=== PATIENT | male | born 1975 | race Caucasian/White ===

== ENCOUNTER 2018-02-18 19:48 | Emergency (ER) | payer SELFPAY ==
[~2018-02-18 19:48] MED LIST: CYCL10TA29 GT; DIA5 GT; DOXY-179 PO; LOR75 PO
--- NOTE | 2018-02-18 19:54 | ER Report ---
History and Physical Time Seen By MD: 19:53 HPI/ROS CHIEF COMPLAINT: Vomiting blood HISTORY OF PRESENT ILLNESS: This is a 42-year-old male who presents to emergency department for vomiting blood. Patient states that around 3 or 3:30 this aftern oon he woke up and felt like he was going to throw up, made it to the bathroom and had a large emesis with blood noted in the vomit. He states it was bright red he has had about 4-5 additional episodes, and now dark in color. Patient does have epigastric discomfort. No diarrhea. No recent fevers or chills. No chest pain or shortness of breath. No history of hematemesis. Patient does drink approximately 8 beers a day, does not take NSAIDs. REVIEW OF SYSTEMS: Constitutional: No fever, no chills. Eyes: No discharge. ENT: No sore throat. Cardiovascular: No chest pain, no palpitations. Respiratory: No cough, no shortness of breath. Gastrointestinal: As above. Genitourinary: No hematuria. Musculoskeletal: No back pain. Skin: No rashes. Neurological: No headache. Allergies: Coded Allergies: No Known Drug Allergies (Unverified , 02/18/18) Home Meds No Active Prescriptions or Reported Meds Past Medical/Surgical History The patient has a past medical and surgical history of left shoulder surgery, consuming large quantities of alcohol. Reviewed Nurses Notes: Yes Hx Smoking: No Smoking Status: Never Smoker Hx Substance Use Disorder: No Hx Alcohol Use: No Constitutional Vital Sign - Last 24 Hours 02/18/18 02/18/18 02/18/18 02/18/18 19:54 19:57 20:00 20:03 Temp 99.0 Pulse 97 87 Resp 18 B/P (MAP) 120/72 (88) 120/72 103/65 (78) Pulse Ox 89 95 O2 Delivery Room Air 02/18/18 02/18/18 02/18/18 02/18/18 20:15 20:18 20:30 20:33 Pulse 103 102 B/P (MAP) 110/71 (84) 127/78 (94) Pulse Ox 93 95 02/18/18 02/18/18 02/18/18 02/18/18 20:45 21:00 21:05 21:15 Pulse 108 B/P (MAP) 131/78 (95) 128/84 (99) 108/86 (93) Pulse Ox 96 02/18/18 02/18/18 02/18/18 02/18/18 21:20 21:50 21:55 22:00 Pulse 106 114 109 B/P (MAP) 119/84 (96) Pulse Ox 96 95 96 02/18/18 02/18/18 02/18/18 02/18/18 22:10 22:15 22:25 22:55 Pulse 122 118 112 B/P (MAP) 79/56 (64) Pulse Ox 91 95 93 02/18/18 02/18/18 02/18/18 02/18/18 23:00 23:10 23:15 23:20 Pulse 106 98 106 B/P (MAP) 132/85 (101) Pulse Ox 95 95 93 02/18/18 02/18/18 23:25 23:35 Pulse 103 Pulse Ox 95 O2 Flow Rate 2.0 Intake and Output 02/18/18 02/18/18 02/19/18 15:00 23:00 07:00 Intake Total 1000 ml 350 ml Balance 1000 ml 350 ml Physical Exam General Appearance: The patient is alert, has no immediate need for airway protection and no signs of toxicity. Eyes: Pupils equal and round no pallor or injection. ENT, Mouth: Mucous membranes are moist. Respiratory: There are no retractions, lungs are clear to auscultation. Cardiovascular: Regular rate and rhythm, very faint systolic murmur, no clicks or rubs. Gastrointestinal: Abdomen is soft, very mild tenderness to the epigastrium, no masses, bowel sounds normal. Liver is palpable. Neurological: Alert and oriented 4. Moving all extremities. Following all commands. No focal neuro deficits. Skin: Warm and dry, no rashes. Musculoskeletal: Neck is supple non tender. Extremities are nontender, nonswollen and have full range of motion. DIFFERENTIAL DIAGNOSIS: After history and physical exam differential diagnosis was considered for abdominal pain including but not limited to appendicitis, cholecystitis, gastritis and urinary tract infection.upper GI bleeding including but not limited to ulcer disease, gastritis, Peace-Quezada tear, and esophageal varices. Medical Decision Making Data Points Result Diagram: 02/18/18200302/18/182003 Laboratory Hematology Test 02/18/18 20:00 02/18/18 20:04 Urine Color Yellow Urine Clarity Cloudy Urine pH 6.0 pH (4.8-9.5) Urine Specific [place] 1.013 Urine Protein 30 mg/dL (NEGATIVE) Urine Glucose (UA) Negative mg/dL (NEGATIVE) Urine Ketones Negative mg/dL (NEGATIVE) Urine Blood Negative (NEGATIVE) Urine Nitrite Negative (NEGATIVE) Urine Bilirubin Negative (NEGATIVE) Urine Urobilinogen 4.0 mg/dL (0.2-1.9) Urine Leukocyte Esterase Negative (NEGATIVE) Urine RBC None /HPF (0-2/HPF) Urine WBC 1 /HPF (0-5/HPF) Urine Squamous Epithelial Cells Many /LPF (</=FEW) Urine Bacteria Negative /HPF (NONE-FEW) Urine Mucus None /HPF (NONE-FEW) Red Blood Count 4.02 M/uL (4.00-5.60) Mean Corpuscular Volume 65.9 fL (80.0-96.0) Mean Corpuscular Hemoglobin 20.7 pg (26.0-33.0) Mean Corpuscular Hemoglobin Concent 31.4 g/dL (32.0-36.0) Red Cell Distribution Width 20.1 % (11.5-14.5) Mean Platelet Volume 8.6 fL (7.2-11.1) Neutrophils (%) (Auto) 61.1 % (39.4-72.5) Lymphocytes (%) (Auto) 24.4 % (17.6-49.6) Monocytes (%) (Auto) 11.1 % (4.1-12.4) Eosinophils (%) (Auto) 1.8 % (0.4-6.7) Basophils (%) (Auto) 1.6 % (0.3-1.4) Nucleated RBC Relative Count (auto) 0.0 /100WBC Neutrophils # (Auto) 5.8 K/uL (2.0-7.4) Lymphocytes # (Auto) 2.3 K/uL (1.3-3.6) Monocytes # (Auto) 1.1 K/uL (0.3-1.0) Eosinophils # (Auto) 0.2 K/uL (0.0-0.5) Basophils # (Auto) 0.2 K/uL (0.0-0.1) Nucleated RBC Absolute Count (auto) 0.00 K/uL Peripheral Blood Smear Yes Y/N Prothrombin Time 16.5 seconds (12.0-14.4) Prothromb Time International Ratio 1.32 Activated Partial Thromboplast Time 34 seconds (23-35) Sodium Level 133 mmol/L (137-145) Potassium Level 3.6 mmol/L (3.5-5.0) Chloride Level 101 mmol/L (98-107) Carbon Dioxide Level 18 mmol/L (22-30) Blood Urea Nitrogen 8 mg/dl (9-21) Creatinine 0.60 mg/dl (0.66-1.25) Glomerular Filtration Rate Calc > 60.0 Random Glucose 115 mg/dl (75-110) Lactate 4.2 mmol/L (0.7-2.1) Calcium Level 8.7 mg/dl (8.4-10.2) Total Bilirubin 1.4 mg/dl (0.2-1.3) Aspartate Amino Transf (AST/SGOT) 72 U/L (0-35) Alanine Aminotransferase (ALT/SGPT) 25 U/L (0-56) Alkaline Phosphatase 145 U/L (0-126) Troponin I < 0.012 ng/ml Total Protein 7.9 g/dl (6.3-8.2) Albumin 3.5 g/dl (3.5-5.0) Lipase 172 U/L (23-300) Serum Alcohol < 10 mg/dl Chemistry Test 02/18/18 20:00 02/18/18 20:04 Urine Color Yellow Urine Clarity Cloudy Urine pH 6.0 pH (4.8-9.5) Urine Specific [place] 1.013 Urine Protein 30 mg/dL (NEGATIVE) Urine Glucose (UA) Negative mg/dL (NEGATIVE) Urine Ketones Negative mg/dL (NEGATIVE) Urine Blood Negative (NEGATIVE) Urine Nitrite Negative (NEGATIVE) Urine Bilirubin Negative (NEGATIVE) Urine Urobilinogen 4.0 mg/dL (0.2-1.9) Urine Leukocyte Esterase Negative (NEGATIVE) Urine RBC None /HPF (0-2/HPF) Urine WBC 1 /HPF (0-5/HPF) Urine Squamous Epithelial Cells Many /LPF (</=FEW) Urine Bacteria Negative /HPF (NONE-FEW) Urine Mucus None /HPF (NONE-FEW) White Blood Count 9.5 k/uL (4.5-11.0) Red Blood Count 4.02 M/uL (4.00-5.60) Hemoglobin 8.3 g/dL (14.0-18.0) Hematocrit 26.5 % (42.0-52.0) Mean Corpuscular Volume 65.9 fL (80.0-96.0) Mean Corpuscular Hemoglobin 20.7 pg (26.0-33.0) Mean Corpuscular Hemoglobin Concent 31.4 g/dL (32.0-36.0) Red Cell Distribution Width 20.1 % (11.5-14.5) Platelet Count 194 K/uL (150-450) Mean Platelet Volume 8.6 fL (7.2-11.1) Neutrophils (%) (Auto) 61.1 % (39.4-72.5) Lymphocytes (%) (Auto) 24.4 % (17.6-49.6) Monocytes (%) (Auto) 11.1 % (4.1-12.4) Eosinophils (%) (Auto) 1.8 % (0.4-6.7) Basophils (%) (Auto) 1.6 % (0.3-1.4) Nucleated RBC Relative Count (auto) 0.0 /100WBC Neutrophils # (Auto) 5.8 K/uL (2.0-7.4) Lymphocytes # (Auto) 2.3 K/uL (1.3-3.6) Monocytes # (Auto) 1.1 K/uL (0.3-1.0) Eosinophils # (Auto) 0.2 K/uL (0.0-0.5) Basophils # (Auto) 0.2 K/uL (0.0-0.1) Nucleated RBC Absolute Count (auto) 0.00 K/uL Peripheral Blood Smear Yes Y/N Prothrombin Time 16.5 seconds (12.0-14.4) Prothromb Time International Ratio 1.32 Activated Partial Thromboplast Time 34 seconds (23-35) Glomerular Filtration Rate Calc > 60.0 Lactate 4.2 mmol/L (0.7-2.1) Calcium Level 8.7 mg/dl (8.4-10.2) Total Bilirubin 1.4 mg/dl (0.2-1.3) Aspartate Amino Transf (AST/SGOT) 72 U/L (0-35) Alanine Aminotransferase (ALT/SGPT) 25 U/L (0-56) Alkaline Phosphatase 145 U/L (0-126) Troponin I < 0.012 ng/ml Total Protein 7.9 g/dl (6.3-8.2) Albumin 3.5 g/dl (3.5-5.0) Lipase 172 U/L (23-300) Serum Alcohol < 10 mg/dl Coagulation Test 02/18/18 20:04 Prothrombin Time 16.5 seconds Prothromb Time International Ratio 1.32 Activated Partial Thromboplast Time 34 seconds Toxicology Test 02/18/18 20:04 Serum Alcohol < 10 mg/dl Urinalysis Test 02/18/18 20:00 Urine Color Yellow Urine Clarity Cloudy Urine pH 6.0 pH (4.8-9.5) Urine Specific [place] 1.013 Urine Protein 30 mg/dL (NEGATIVE) Urine Glucose (UA) Negative mg/dL (NEGATIVE) Urine Ketones Negative mg/dL (NEGATIVE) Urine Blood Negative (NEGATIVE) Urine Nitrite Negative (NEGATIVE) Urine Bilirubin Negative (NEGATIVE) Urine Urobilinogen 4.0 mg/dL (0.2-1.9) Urine Leukocyte Esterase Negative (NEGATIVE) Urine RBC None /HPF (0-2/HPF) Urine WBC 1 /HPF (0-5/HPF) Urine Squamous Epithelial Cells Many /LPF (</=FEW) Urine Bacteria Negative /HPF (NONE-FEW) Urine Mucus None /HPF (NONE-FEW) EKG/Imaging EKG Interpretation 12 lead EKG: Time of EKG 2032. Rhythm: Sinus tachycardia with ventricular rate 102 bpm. [place]: normal QRS: normal ST segments: Inverted T-wave in V1, V2, V3 and flattened T wave in V4 no ST depression or elevation identified. [ ] Imaging Location: [facility] Patient: Elier Miller : 1975 Visit/Account:[id number] Date of Sevice: 02/18/2018 EXAMINATION: CT abdomen and pelvis with contrast COMPARISON: None. HISTORY: Abdomen pain with hematemesis. PROCEDURE: Multiplanar contrast enhanced CT of the abdomen and pelvis with 75 mL intravenous Isovue 370. One of the following dose optimization techniques was utilized in the performance of this exam: Automated exposure control; adjustment of the mA and/or kV according to the patient's size; or use of an iterative reconstruction technique. Specific details can be referenced in the facility's radiology CT exam operational policy. FINDINGS: Visualized thorax: Minimal atelectasis. No acute findings. Liver: Heterogeneously enlarged low-attenuation liver with a micronodular contour. Gallbladder and biliary system: Contracted gallbladder. Trace fluid in the gallbladder fossa. No bile duct dilation. Spleen: Homogeneous 16.3 cm spleen. Pancreas: Negative. Adrenal glands: Negative. Kidneys and bladder: No renal mass or evidence of an obstructive uropathy. Urinary bladder is unremarkable. Vessels: Aortic mild atherosclerosis. No abdominal aortic aneurysm. IVC is unremarkable. Main portal vein is patent. Recannulated umbilical vein as well as scattered small portosystemic collaterals including paraesophageal collaterals. Bowel and mesentery: Stomach is within normal limits. No small bowel obstruction or inflammation. Appendix is unremarkable. Ascending colon and hepatic flexure mild wall edema. Minimal stool in the colon. Sigmoid mild diverticulosis. No diverticular inflammation. Pelvic organs: Negative. Lymph nodes: Scattered prominent retroperitoneal and mesenteric lymph nodes are nonspecific but favored to be reactive. Free air/free fluid: Minimal fluid in the gallbladder fossa and right paracolic gutter. No pneumoperitoneum. Abdominal wall and osseous structures: Small fat-containing right inguinal hernia. Small supraumbilical superficial venous collateral. Osseous structures are intact. IMPRESSION: 1. Cirrhosis and portal hypertension. 2. Trace fluid in the gallbladder fossa. The gallbladder is otherwise unremarkable and the fluid is favored to be secondary to the hepatocellular disease. Gallbladder inflammation is considered less likely although this could be further characterized by ultrasound if there is a clinical concern for cholecystitis. 3. Ascending colon and hepatic flexure mild wall edema. This is also favored to be related to the hepatocellular disease although correlation with any clinical evidence of an uncomplicated nonspecific colitis is recommended. 4. Additional chronic/incidental findings as described above. Report Dictated By: Donovan Serna MD at 02/18/2018 9:25 PM Report E-Signed By: Donovan Serna MD at 02/18/2018 9:35 PM [id number] ED Course/Re-evaluation Clinical Indication for ER IV: Hydration, IV Access ED Course The patient was admitted to room. A history and physical were obtained. Differential to seize were considered. IV was started. A CBC, CMP, troponin, lactate were obtained. CBC showing H&H of 8.3 and 36.5, sodium 133. Lactate of 4.2. PTT 34, INR 1.32. Patient was typed and screened. Patient was given 40 mg IV Protonix. 4 mg IV Zofran. EKG showing sinus tachycardia, no ST elevation or depression. A CT of the abdomen and pelvis showing Cirrhosis and portal hypertension along with a possible hepatocellular disease. I reviewed the results with the patient and his significant other at the bedside, I did recommend an admission to the hospital for further evaluation, there was some reluctance however the patient was ultimately agreeable. I did speak with Dr. chavira, the surgeon web production manager, no evidence discretion below, he did feel that the patient would be better off a larger facility with GI capabilities. I discussed this with the patient, there was some reluctance on his part however he has agreed to transfer to the [facility], the patient did want to go home however I did express my concern and that it would not be in his best i nterest to go home, ultimately the patient agreed to stay in the hospital and a transfer. The patient has remained pain-free, no nausea or vomiting since his admission to the emergency department. I did speak with Dr. leonard and Dr. Cespedes from [facility] as noted below, the patient will be transferred down to the hospitalist services, he will be transferred to the intensive care unit. 02/18/2018 10:14:22 pm I did speak with Dr. Carlton, the surgeon on-call, we discussed the patient's case, he is concerned with the new diagnosis of cirrhosis and portal hypertension with the potential complications of esophageal varices that the patient would be better served in a facility that has a GI specialist with the capability of banding varices should they rupture. 02/18/2018 10:15:20 pm I did discuss this with the patient, there was some reluctance on the patient's part to transfer to another facility, he wanted to go home however I did express my concern that this could be a life-threatening problem, he has elected to a ground transfer to the [facility]. 02/18/2018 10:38:15 pm I did speak with Dr. leonard, the GI specialist at [facility], he has agreed to a transfer to [facility], I also spoke with Dr. Cespedes the hospitalist on-call as well, he said we go ahead and transfer the patient down to his services, patient will be admitted to the ICU. We will give 100 g octreotide IV push per their request as well as 1 g of ceftriaxone. Patient will also have normal saline at [facility]. A spoke with the patient, patient is agreeable with transfer. 02/18/2018 11:00:34 pm unfortunately the [facility] is now on divert, I did have her speak with Dr. Olson the hospitalist at [facility] in [place], the patient will be transferred into his services. I did update the patient, he still agreeable with the transfer. Patient did have an emesis however he feels much better did have a mild headache as well however that his improved as well. Decision to Disposition Date: Feb 18, 2018 Decision to Disposition Time: 22:38 Depart Departure Latest Vital Signs Vital Signs Date Time Temp Pulse Resp B/P (MAP) Pulse Ox O2 Delivery O2 Flow Rate FiO2 02/18/18 23:35 2.0 02/18/18 23:25 103 95 02/18/18 23:00 132/85 (101) 02/18/18 19:57 99.0 18 Room Air Impression: Primary Impression: Hematemesis Additional Impressions: Cirrhosis of liver Portal hypertension Condition: Improved Disposition: XFER TO ACUTE CARE HOSPITAL ([facility].) New Scripts No Active Prescriptions or Reported Meds Problem Qualifiers Primary Impression: Hematemesis Nausea presence: with nausea Qualified Codes: K92.0 - Hematemesis Additional Impressions: Cirrhosis of liver Hepatic cirrhosis type: alcoholic cirrhosis Ascites presence: without ascites Qualified Codes: K70.30 - Alcoholic cirrhosis of liver without ascites CALLIE QUEZADA-DEMETRIS Feb 18, 2018 19:54
[2018-02-18] MEDS ORDERED: NS(*) 0.9% 1000 ML BAG 1,000 ML IV ONE ×2 (20:02→22:45)
[2018-02-18] MEDS ORDERED: ONDANSETRON 4 MG/2 ML VIAL IVP ONE (20:05)
[2018-02-18 20:11] LABS: PLATELET COUNT, AUTOMATED 194 K/uL (150-450)
[2018-02-18] MEDS ORDERED: PANTOPRAZOLE SOD 40 MG IV VIAL IVP ONE (20:25)
[2018-02-18] MEDS ORDERED: IOPAMIDOL 76% 50 ML INFUS BTL 100 ML ONE (20:54)
--- NOTE | 2018-02-18 21:40 | RADIOLOGY IMAGING REPORT ---
[place] [facility] [place] NAME: Elier Miller : 1975 MR: [id number] V: [id number] EXAM DATE: ORDERING PHYSICIAN: CALLIE QUEZADA TECHNOLOGIST: [place] [facility] [place] Elier [place] : 1975 Visit/Account:[id number] Date of Sevice: 02/18/2018 EXAMINATION: CT abdomen and pelvis with contrast COMPARISON: None. HISTORY: Abdomen pain with hematemesis. PROCEDURE: Multiplanar contrast enhanced CT of the abdomen and pelvis with 75 mL intravenous Isovue 3 70. One of the following dose optimization techniques was utilized in the performance of this exam: A utomated exposure control; adjustment of the mA and/or kV according to the patient's size; or use of an iterative reconstruction technique. Specific details can be referenced in the facility's radiolo gy CT exam operational policy. FINDINGS: Visualized thorax: Minimal atelectasis. No acute findings. Liver: Heterogeneously enlarged low-attenuation liver with a micronodular contour. Gallbladder and biliary system: Contracted gallbladder. Trace fluid in the gallbladder fossa. No bile duct dilation. Spleen: Homogeneous 16.3 cm spleen. Pancreas: Negative. Adrenal glands: Negative. Kidneys and bladder: No renal mass or evidence of an obstructive uropathy. Urinary bladder is unrema rkable. Vessels: Aortic mild atherosclerosis. No abdominal aortic aneurysm. IVC is unremarkable. Main portal vein is patent. Recannulated umbilical vein as well as scattered small portosystemic collaterals incl uding paraesophageal collaterals. Bowel and mesentery: Stomach is within normal limits. No small bowel obstruction or inflammation. Hung endix is unremarkable. Ascending colon and hepatic flexure mild wall edema. Minimal stool in the colo n. Sigmoid mild diverticulosis. No diverticular inflammation. Pelvic organs: Negative. Lymph nodes: Scattered prominent retroperitoneal and mesenteric lymph nodes are nonspecific but favor ed to be reactive. Free air/free fluid: Minimal fluid in the gallbladder fossa and right paracolic gutter. No pneumoperi toneum. Abdominal wall and osseous structures: Small fat-containing right inguinal hernia. Small supraumbilic al superficial venous collateral. Osseous structures are intact. IMPRESSION: 1. Cirrhosis and portal hypertension. 2. Trace fluid in the gallbladder fossa. The gallbladder is otherwise unremarkable and the fluid is f avored to be secondary to the hepatocellular disease. Gallbladder inflammation is considered less lik darshana although this could be further characterized by ultrasound if there is a clinical concern for cho lecystitis. 3. Ascending colon and hepatic flexure mild wall edema. This is also favored to be related to the hep atocellular disease although correlation with any clinical evidence of an uncomplicated nonspecific c olitis is recommended. 4. Additional chronic/incidental findings as described above. Report Dictated By: Donovan Serna MD at 02/18/2018 9:25 PM Report E-Signed By: Donovan Serna MD at 02/18/2018 9:35 PM [id number]
--- NOTE | 2018-02-18 21:48 | EKG ---
FACILITY: [facility] PATIENT NAME: AUDREY PARRA : [id number] MR: [id number] V: [id number] EXAM DATE: ORDERING PHYSICIAN: CALLIE QUEZADA TECHNOLOGIST: STEFANY Test Reason : LOW K+ Blood Pressure : / mmHG Vent. Rate : 102 BPM Atrial Rate : 102 BPM P-R Int : 184 ms QRS Dur : 092 ms QT Int : 352 ms P-R-T Axes : 037 002 023 degrees QTc Int : 458 ms Sinus tachycardia Borderline left axis Decreased R wave progression anteriorly Nonspecific ST-T findings through anterior leads Abnormal ECG No previous ECGs available Confirmed by MIAH OLMEDO ([id number]) on 02/19/2018 6:33:11 AM Referred By: Confirmed By:MIAH OLMEDO
[2018-02-18] MEDS ORDERED: OCTREOTIDE ACE 200 MCG/ML 5 ML VIAL IVP ONE (22:30)
[2018-02-18] MEDS ORDERED: cefTRIAXone 1 GM VIAL IVP ONE (22:35)
[2018-02-18 23:00] VITALS: BP 132/85
[2018-02-18 23:24] LABS: INR 1.32
== END 2018-02-18 23:34 | disposition short-term general hospital (02) ==
LOC: ER 19:58
DX: K92.0 Hematemesis (principal); K70.30 Alcoholic cirrhosis of liver without ascites; K76.6 Portal hypertension
CPT/HCPCS: 36415; 74177; 80320; 81001; 83605; 83690; 84484; 85025; 85610; 85730; 86850; 86900; 86901; 93005; 96361; 96374; 96375; 99285; C9113; J0696; J2354; J2405; J7030; Q9967; 82040; 82247; 82310; 82374; 82435; 82565; 82947; 84075; 84132; 84155; 84295; 84450; 84460; 84520

== ENCOUNTER 2018-03-19 09:58 | Emergency (ER) | payer SELFPAY ==
--- NOTE | 2018-03-19 10:08 | ER Report ---
History and Physical Time Seen By MD: 10:37 HPI/ROS CHIEF COMPLAINT: Generalized weakness HISTORY OF PRESENT ILLNESS: Patient is a 42-year-old male who presents with 1-2 weeks of generalized malaise and weakness. He is seen in the middle of February for hematemesis ultimately transferred to [facility] where he was ultimately diagnosed with esophageal varices and bleeding which were banded. Since discharge the patient is complained of some generalized malaise and fatigue. He states that he has had no further episodes of vomiting blood work done or tarry stools. He is on 40 mg of Protonix twice daily. Patient states that at times he will just sleep throughout the day and has limited activity due to fatigue. He has generalized body aches occasional headache but no history of fever or chills. REVIEW OF SYSTEMS: Constitutional: No fever, no chills. Eyes: No discharge. ENT: No sore throat. Cardiovascular: No chest pain, no palpitations. Respiratory: No cough, no shortness of breath. Gastrointestinal: No abdominal pain, no vomiting. Genitourinary: No hematuria. Musculoskeletal: No back pain. Skin: No rashes. Neurological: No headache. Allergies: Coded Allergies: No Known Drug Allergies (Unverified , 03/19/18) Home Meds Active Scripts Ferrous Sulfate (IRON) 325 Mg Tablet, 325 MG PO QDAY for 30 Days, #30 TAB 0 Refills Prov:DALLAS RODRIGUEZ MD 03/19/18 Docusate Sodium (COLACE) 100 Mg Capsule, 100 MG PO QDAY for 30 Days, #30 CAPSULE 0 Refills Prov:DALLAS RODRIGUEZ MD 03/19/18 Past Medical/Surgical History Patient with past medical history for cirrhosis of the liver, hematemesis and there is some suggestion of alcohol use/abuse based on reviewing the electronic medical record. Patient was seen in the middle of February 2018 for vomiting blood and was found to have portal hypertension and cirrhosis. He was ultimately transferred to [facility] for evaluation by gastroenterology but there is no medical record updates from that visit. Hx Smoking: No Smoking Status: Never Smoker Hx Substance Use Disorder: No Hx Alcohol Use: No Constitutional Vital Sign - Last 24 Hours 03/19/18 03/19/18 03/19/18 03/19/18 09:58 10:04 10:10 10:13 Temp 98.4 Pulse ??? 84 86 Resp 16 14 B/P (MAP) 122/86 (98) 122/86 Pulse Ox 100 97 O2 Delivery Room Air 03/19/18 03/19/18 03/19/18 03/19/18 10:28 10:30 10:58 11:00 Pulse 82 82 Resp 20 15 B/P (MAP) 124/83 (97) 125/82 (96) Pulse Ox 93 93 03/19/18 03/19/18 03/19/18 03/19/18 11:05 11:20 11:35 11:50 Pulse 81 85 79 83 Resp 16 9 21 20 Pulse Ox 91 94 94 99 Physical Exam General Appearance: The patient is alert, has no immediate need for airway protection and no signs of toxicity. Eyes: Pupils equal and round no pallor or injection. ENT, Mouth: Mucous membranes are moist. Respiratory: There are no retractions, lungs are clear to auscultation. Cardiovascular: Regular rate and rhythm. Gastrointestinal: Abdomen is soft and non tender, no masses, bowel sounds normal. Neurological: Awake alert Skin: Warm and dry, no rashes. Musculoskeletal: Neck is supple non tender. Extremities are nontender, nonswollen and have full range of motion. Medical Decision Making Data Points Result Diagram: 03/19/18 1020 03/19/18 1020 Laboratory Hematology Test 03/19/18 00:00 03/19/18 10:20 03/19/18 10:32 03/19/18 11:25 Monoscreen Negative (NEGATIVE) Red Blood Count 4.61 M/uL (4.00-5.60) Mean Corpuscular Volume 69.5 fL (80.0-96.0) Mean Corpuscular Hemoglobin 22.8 pg (26.0-33.0) Mean Corpuscular Hemoglobin Concent 32.8 g/dL (32.0-36.0) Red Cell Distribution Width 26.4 % (11.5-14.5) Mean Platelet Volume 8.5 fL (7.2-11.1) Neutrophils (%) (Auto) 62.4 % (39.4-72.5) Lymphocytes (%) (Auto) 19.3 % (17.6-49.6) Monocytes (%) (Auto) 8.8 % (4.1-12.4) Eosinophils (%) (Auto) 8.0 % (0.4-6.7) Basophils (%) (Auto) 1.5 % (0.3-1.4) Nucleated RBC Relative Count (auto) 0.0 /100WBC Neutrophils # (Auto) 5.0 K/uL (2.0-7.4) Lymphocytes # (Auto) 1.5 K/uL (1.3-3.6) Monocytes # (Auto) 0.7 K/uL (0.3-1.0) Eosinophils # (Auto) 0.6 K/uL (0.0-0.5) Basophils # (Auto) 0.1 K/uL (0.0-0.1) Nucleated RBC Absolute Count (auto) 0.00 K/uL Peripheral Blood Smear Yes Y/N Prothrombin Time 17.6 seconds (12.0-14.4) Prothromb Time International Ratio 1.43 Activated Partial Thromboplast Time 45 seconds (23-35) Sodium Level 135 mmol/L (137-145) Potassium Level 3.7 mmol/L (3.5-5.0) Chloride Level 103 mmol/L (98-107) Carbon Dioxide Level 24 mmol/L (22-30) Blood Urea Nitrogen 5 mg/dl (9-21) Creatinine 0.80 mg/dl (0.66-1.25) Glomerular Filtration Rate Calc > 60.0 Random Glucose 114 mg/dl (75-110) Calcium Level 8.2 mg/dl (8.4-10.2) Magnesium Level 1.5 mg/dl (1.7-2.2) Total Bilirubin 1.6 mg/dl (0.2-1.3) Aspartate Amino Transf (AST/SGOT) 62 U/L (0-35) Alanine Aminotransferase (ALT/SGPT) 24 U/L (0-56) Alkaline Phosphatase 211 U/L (0-126) Troponin I < 0.012 ng/ml B-Type Natriuretic Peptide 75 pg/ml (0-100) Total Protein 8.1 g/dl (6.3-8.2) Albumin 3.3 g/dl (3.5-5.0) Serum Alcohol < 10 mg/dl Influenza Virus Type A (PCR) Negative (NEGATIVE) Influenza Virus Type B (PCR) Negative (NEGATIVE) Stool Occult Blood (IFOB) Positive (NEGATIVE) Chemistry Test 03/19/18 00:00 03/19/18 10:20 03/19/18 10:32 03/19/18 11:25 Monoscreen Negative (NEGATIVE) White Blood Count 8.0 k/uL (4.5-11.0) Red Blood Count 4.61 M/uL (4.00-5.60) Hemoglobin 10.5 g/dL (14.0-18.0) Hematocrit 32.0 % (42.0-52.0) Mean Corpuscular Volume 69.5 fL (80.0-96.0) Mean Corpuscular Hemoglobin 22.8 pg (26.0-33.0) Mean Corpuscular Hemoglobin Concent 32.8 g/dL (32.0-36.0) Red Cell Distribution Width 26.4 % (11.5-14.5) Platelet Count 205 K/uL (150-450) Mean Platelet Volume 8.5 fL (7.2-11.1) Neutrophils (%) (Auto) 62.4 % (39.4-72.5) Lymphocytes (%) (Auto) 19.3 % (17.6-49.6) Monocytes (%) (Auto) 8.8 % (4.1-12.4) Eosinophils (%) (Auto) 8.0 % (0.4-6.7) Basophils (%) (Auto) 1.5 % (0.3-1.4) Nucleated RBC Relative Count (auto) 0.0 /100WBC Neutrophils # (Auto) 5.0 K/uL (2.0-7.4) Lymphocytes # (Auto) 1.5 K/uL (1.3-3.6) Monocytes # (Auto) 0.7 K/uL (0.3-1.0) Eosinophils # (Auto) 0.6 K/uL (0.0-0.5) Basophils # (Auto) 0.1 K/uL (0.0-0.1) Nucleated RBC Absolute Count (auto) 0.00 K/uL Peripheral Blood Smear Yes Y/N Prothrombin Time 17.6 seconds (12.0-14.4) Prothromb Time International Ratio 1.43 Activated Partial Thromboplast Time 45 seconds (23-35) Glomerular Filtration Rate Calc > 60.0 Calcium Level 8.2 mg/dl (8.4-10.2) Magnesium Level 1.5 mg/dl (1.7-2.2) Total Bilirubin 1.6 mg/dl (0.2-1.3) Aspartate Amino Transf (AST/SGOT) 62 U/L (0-35) Alanine Aminotransferase (ALT/SGPT) 24 U/L (0-56) Alkaline Phosphatase 211 U/L (0-126) Troponin I < 0.012 ng/ml B-Type Natriuretic Peptide 75 pg/ml (0-100) Total Protein 8.1 g/dl (6.3-8.2) Albumin 3.3 g/dl (3.5-5.0) Serum Alcohol < 10 mg/dl Influenza Virus Type A (PCR) Negative (NEGATIVE) Influenza Virus Type B (PCR) Negative (NEGATIVE) Stool Occult Blood (IFOB) Positive (NEGATIVE) Coagulation Test 03/19/18 10:20 Prothrombin Time 17.6 seconds Prothromb Time International Ratio 1.43 Activated Partial Thromboplast Time 45 seconds Toxicology Test 03/19/18 10:20 Serum Alcohol < 10 mg/dl EKG/Imaging EKG Interpretation EKG shows normal sinus rhythm with a ventricular rate of 84 bpm. this was compared to an EKG from February 18 which showed sinus tachycardia but otherwise was unchanged. Monitor Interpretation: Normal Sinus Rhythm ED Course/Re-evaluation ED Course 03/19/2018 12:09:36 pm workup shows improvement in hemoglobin however patient did test positive for microscopic bleeding on occult testing. Currently no signs of massive bleeding including hemoptysis hematochezia or melena. Abdominal exam is nonfocal. Monospot negative. Alcohol level negative. Transaminases are essentially unchanged. If not slightly more elevated then visit in February. Counseled the patient and spouse the importance of keeping her GI appointment in April as well as establishing a primary care provider in [place]. Decision to Disposition Date: Mar 19, 2018 Decision to Disposition Time: 12:10 Depart Departure Latest Vital Signs Vital Signs Date Time Temp Pulse Resp B/P (MAP) Pulse Ox O2 Delivery O2 Flow Rate FiO2 03/19/18 11:50 83 20 99 03/19/18 11:00 125/82 (96) 03/19/18 10:10 98.4 Room Air Impression: Primary Impression: Transaminitis Additional Impression: Fatigue associated with anemia Condition: Condition Unchanged Disposition: HOME OR SELF-CARE Referrals: [facility] MD Call in the next 24 hours to establish an appointment in the next 2-4 weeks to establish routine care and follow-up. New Scripts Ferrous Sulfate (IRON) 325 Mg Tablet 325 MG PO QDAY for 30 Days, #30 TAB 0 Refills Prov: DALLAS RODRIGUEZ MD 03/19/18 Docusate Sodium (COLACE) 100 Mg Capsule 100 MG PO QDAY for 30 Days, #30 CAPSULE 0 Refills Prov: DALLAS RODRIGUEZ MD 03/19/18 Patient Instructions: Anemia (ED), Fatigue (GEN) Additional Instructions: Continue your Protonix as directed Tylenol 325 mg tablets taken at most 2 tablets every 6 hours as needed for pain. Problem Qualifiers DALLAS RODRIGUEZ MD Mar 19, 2018 10:08
[2018-03-19] MEDS ORDERED: NS(*) 0.9% 1000 ML BAG 1,000 ML IV ONE (10:19)
[2018-03-19] MEDS ORDERED: ONDANSETRON 4 MG/2 ML VIAL ONE (10:29)
[2018-03-19 10:33] LABS: PLATELET COUNT, AUTOMATED 205 K/uL (150-450)
[2018-03-19] MEDS ORDERED: ONDANSETRON 4 MG/2 ML VIAL IVP ONE (10:40)
[2018-03-19 11:00] VITALS: BP 125/82
--- NOTE | 2018-03-19 11:06 | EKG ---
FACILITY: [facility] [place] PATIENT NAME: AUDREY PARRA : [id number] MR: [id number] V: [id number] EXAM DATE: ORDERING PHYSICIAN: DALLAS RODRIGUEZ TECHNOLOGIST: MAKENNA Jose Reason : Blood Pressure : / mmHG Vent. Rate : 084 BPM Atrial Rate : 084 BPM P-R Int : 176 ms QRS Dur : 088 ms QT Int : 394 ms P-R-T Axes : 016 -13 -09 degrees QTc Int : 465 ms Sinus rhythm Left axis deviation Poor R wave progression anteriorly Nonspecific ST-T findings anterior and inferior leads Prolonged QT Confirmed by MIAH OLMEDO ([id number] on 03/19/2018 12:53:44 PM Referred By: MICHAEL Confirmed By:MIAH OLMEDO
--- NOTE | 2018-03-19 11:08 | RADIOLOGY IMAGING REPORT ---
FACILITY: [facility] PATIENT NAME: Elier Miller : 1975 MR: [id number] V: [id number] EXAM DATE: ORDERING PHYSICIAN: DALLAS RODRIGUEZ TECHNOLOGIST: Location: [facility] [place] Patient: Elier Miller : 1975 Visit/Account:[id number] Date of Sevice: 03/19/2018 Exam type: CHEST PA LAT History: Chest Pain Comparison: July 08, 2011. Findings: There is a thick band of consolidation the right midlung field with elevation right hemidiaphragm lik darshana related to atelectasis. Left lung appears free of consolidation. No evidence of pleural effusio ns or pulmonary edema.. Cardiac silhouette is normal. IMPRESSION: 1. Thick band of consolidation in the right midlung field with elevation right hemidiaphragm likely related to atelectasis Report Dictated By: Criselda Abrams MD at 03/19/2018 11:02 AM Report E-Signed By: Criselda Abrams MD at 03/19/2018 11:05 AM WSN:[id number]
[2018-03-19 11:45] LABS: INR 1.43
[2018-03-19] MEDS ORDERED: FERR325T24 PO (12:13)
[2018-03-19] MEDS ORDERED: DOCU-416 PO (12:13)
== END 2018-03-19 12:28 | disposition home or self-care (01) ==
LOC: ER 10:13
DX: R74.0 Nonspecific elevation of levels of transaminase and lactic acid dehydrogenase [LDH] (principal); R53.83 Other fatigue; D64.9 Anemia, unspecified
CPT/HCPCS: 71046; 80320; 82274; 83735; 83880; 84484; 85025; 85610; 85730; 86308; 86850; 86900; 86901; 87502; 93005; 96361; 96374; 99284; J2405; J7030; 82040; 82247; 82310; 82374; 82435; 82565; 82947; 84075; 84132; 84155; 84295; 84450; 84460; 84520

== ENCOUNTER → 2018-04-09 | Outpatient (CLI) | payer SELFPAY ==
[~2018-04-09] MED LIST changes: +DOCU-416 PO; +FERR325T24 PO
[2018-04-09 15:48] LABS: PLATELET COUNT, AUTOMATED 192 K/uL (150-450)
[2018-04-09 15:51] LABS: INR 1.46
== END ==
LOC: LAB 14:55
DX: K70.9 Alcoholic liver disease, unspecified (principal)
CPT/HCPCS: 36415; 82040; 82247; 82310; 82374; 82390; 82435; 82565; 82607; 82728; 82746; 82947; 84075; 84132; 84155; 84295; 84450; 84460; 84520; 85007; 85027; 85610